=== PATIENT | male | born 1980 | race Caucasian/White ===

== ENCOUNTER → 2018-12-25 17:37 | Outpatient (CLI) | payer OTHER, SELFPAY ==
[2018-12-25 18:02] LABS: Influenza A and B by PCR Rapid Negative (Negative)
== END ==
PROVIDERS: Visit Provider Physician Assistant
DX: R68.89 Other general symptoms and signs (principal)
CPT/HCPCS: 87400

== ENCOUNTER → 2019-10-10 12:55 | Outpatient (CLI) | payer OTHER, SELFPAY ==
[2019-10-10 13:38] LABS: Add Manual Diff / Slide Review NO; Basophils Absolute Auto 100 /uL (0-100); Basophils Percent Auto 0.9 % (0-2); Eosinophils Absolute Auto 100 /uL (0-450); Eosinophils Percent Auto 1.4 % (2-4); Hematocrit 46.2 % (41-53); Hemoglobin 16.4 g/dL (13.5-17.5); Lymphocytes Absolute Auto 1700 /uL (1100-4500); Lymphocytes Percent Auto 29.1 % (25-40); Mean Corpuscular HGB Conc 35.6 % (30-36); Mean Corpuscular Hemoglobin 31.9 PG (26-34); Mean Corpuscular Volume 89.5 fL (80-100); Monocytes Absolute Auto 500 /uL (0-900); Monocytes Percent Auto 8.8 % (3-14); Neutrophils Absolute Auto 3500 /uL (1500-7000); Neutrophils Percent Auto 59.8 % (50-75); Platelet Count 241 X10^3/uL (150-400); Red Blood Cell Count 5.16 X10^6/uL (4.5-5.9); Red Cell Distribution Width 13.1 % (11.6-14.8); White Blood Cell Count 5.8 X10^3/uL (4.5-11.0)
[2019-10-10 14:05] LABS: Alanine Aminotransferase 38 IU/L (<50); Albumin 4.7 g/dL (3.5-5.0); Albumin Globulin Ratio 1.6 (1.0-2.8); Alkaline Phosphatase 39 U/L (38-126); Aspartate Aminotransferase 33 IU/L (17-59); BUN Creatinine Ratio 15.5 (6-22); Bilirubin Total 0.7 mg/dL (0.2-1.3); Blood Urea Nitrogen 17 mg/dL (9-20); Calcium 9.5 mg/dL (8.4-10.2); Carbon Dioxide 26 mmol/L (22-32); Chloride 104 mmol/L (98-107); Estimated Glomerular Filt Rate > 60.0 mL/min (>60); Globulin 2.9 g/dL (1.7-4.1); Glucose 93 mg/dL (70-100); HEMOLYSIS < 15 (0-50); Lipase 170 U/L (23-300); Sodium 139 mmol/L (137-145); Total Protein 7.6 g/dL (6.3-8.2)
== END ==
PROVIDERS: PCP Family Medicine; Visit Provider Family Medicine
DX: K58.9 Irritable bowel syndrome, unspecified (principal); K21.9 Gastro-esophageal reflux disease without esophagitis; R19.7 Diarrhea, unspecified; R53.83 Other fatigue
CPT/HCPCS: 36415; 80053; 83690; 85025; 86677; 87045; 87177; 87899

== ENCOUNTER 2019-11-13 09:03 | Day surgery (SDC) | payer OTHER, SELFPAY ==
[2019-11-13] VITALS (7 sets, daily range): BP systolic 118–131; BP diastolic 74–80; PULSE 68–82; RESP 11–16; TEMP 36–36.8; O2SAT 95–100; BMI 26.9
--- NOTE | 2019-11-13 | PATH_ITS ---
[facility] Accession Number: [id number] . 01 Material submitted: . PART A: colon - RANDOM BIOPSIES ASCENDING COLON PART B: colon - RANDOM BIOPSIES TRANSVERSE COLON PART C: colon - RANDOM BIOPSIES SIGMOID/DESCENDING COLON PART D: rectum - RANDOM RECTAL BIOPSIES . 02 Diagnosis: A-D: Random Ascending, Transverse, Sigmoid/Descending Colon, Rectum, Biopsies: Colonic mucosa with no diagnostic abnormality. Negative for active, chronic, and microscopic colitis. Negative for dysplasia and malignancy. . [facility] 11/16/2019 0952 Local . 02 Electronically signed: . Reji Freire MD, PhD, Pathologist NPI- [id number] . 01 Gross description: . Part A: RANDOM BIOPSIES ASCENDING COLON: Received in formalin are 3 fragment(s) of carpenter, soft tissue measuring 0.1 x 0.1 x 0.1 cm to 0.3 x 0.2 x 0.2 cm submitted entirely in 1 cassette(s) Part B: RANDOM BIOPSIES TRANSVERSE COLON: Received in formalin are 3 fragment(s) of carpenter, soft tissue measuring 0.1 x 0.1 x 0.1 cm to 0.3 x 0.2 x 0.2 cm submitted entirely in 1 cassette(s) Part C: RANDOM BIOPSIES SIGMOID/DESCENDING COLON: Received in formalin are 2 fragment(s) of carpenter, soft tissue measuring 0.2 x 0.2 x 0.2 cm to 0.3 x 0.2 x 0.2 cm submitted entirely in 1 cassette(s) Part D: RANDOM RECTAL BIOPSIES: Received in formalin are 2 fragment(s) of carpenter, soft tissue measuring 0.1 x 0.1 x 0.1 cm to 0.2 x 0.2 x 0.2 cm submitted entirely in 1 cassette(s) /[facility] 11/13/2019 2105 Local . 02 Pathologist provided ICD-10: R19.4 . 02 CPT . 738656, [id number], 706014, [id number] Performed at: 01 [facility] [address] [id number] MD Norberto Agrawal MD Phone: [phone] Performed at: [facility] [id number] [place], [place] [id number] MD Shannen Amezquita MD Phone: [phone]
[2019-11-13] MEDS: SODIUM CHLORIDE 0.9% 1,000 ML 200 ML IV (09:50)
--- NOTE | 2019-11-13 10:16 | PM.PREOP ---
Pre-operative Note Interval Note History & Physical reviewed/Exam performed by Physician: Yes Changes to H&P: No ASA Class (for procedural sedation): II
--- NOTE | 2019-11-13 10:42 | PM.OP.ENDO ---
Operative Date/Time/Diagnoses Date of procedure: 11/13/19 Time of procedure: 10:42 Pre-op diagnosis: Dark stool, chronic abdominal pain, high risk family history colorectal cancer Post-op diagnosis: other (Normal appearing colon) Procedure & Clinicians Study performed: Diagnostic colonoscopy, random biopsies of ascending, transverse, descending/sigmoid, and rectum Same procedure as scheduled: Yes Indications: Chronic abdominal pain, dark stool, suspected colitis, family history of colorectal cancer Surgeon: Bita Morocho Procedure Notes SCOAP/Timeout: Performed Procedure in detail: The patient was brought to the room and placed in left lateral decubitus position with all bony prominences padded. A time-out was performed and then the patient was given procedural sedation starting with [4] mg of Versed and [100] mcg of fentanyl. Vitals were monitored throughout the procedure and remained stable. Once adequately sedated the procedure was begun. A rectal exam was performed revealing [no abnormalities]. The colonoscope was then introduced to the rectum and advanced to the cecum in the usual fashion. []The cecum was identified by the appendiceal orifice, the mucosal tri-fold, and the ileocecal valve. The scope was then retracted while rotating side to side and examining each mucosal fold. [] At the conclusion of the procedure retroflexion was performed and [small grade 1-2 internal hemorrhoids without stigmata of bleeding were seen]. The scope was then withdrawn from the rectum the procedure was concluded. The patient tolerated the procedure well and was transferred to the PACU in stable condition. Findings: other findings (Normal appearing colon) Specimen(s): other (Random mucosal biopsies of the ascending, transverse, descending/sigmoid, and rectum) Complications: none Impression: Normal appearing colon Post-procedure Recommendations: Colonscopy in 5 years (Due to family history) and Other recommendation (Will depend on biopsy results.) Follow up: as needed Disposition: PACU
[2019-11-13] MEDS: MIDAZOLAM 5 MG/ML VIAL 4 MG IV (10:43)
[2019-11-13] MEDS: fentaNYL 250 MCG/5 ML INJ IV (10:44)
== END 2019-11-13 11:40 | disposition home or self-care (01) ==
PROVIDERS: PCP Family Medicine; Referring Provider Surgery; Visit Provider Surgery
PROC: 0DJD8ZZ Inspection of Lower Intestinal Tract, Via Natural or Artificial Opening Endoscopic (ICD-10-PCS; CPT 45378; principal; 2019-11-13 10:00)
DX: K64.0 First degree hemorrhoids (principal)
CPT/HCPCS: 45380; J2250; J3010

== ENCOUNTER 2019-12-09 15:15 | Outpatient (RCR) | payer OTHER, SELFPAY ==
--- NOTE | 2019-12-02 18:18 | PT.OIE ---
Current Diagnoses Chronic tension-type headache, not intractable (12/02/19) Other chronic pain (12/02/19) Cervicalgia (12/02/19) Dorsalgia, unspecified (12/02/19) Past Medical History (Last Updated 11/07/19 @ 08:47 by Alejandro Uribe DO) Asthma (Chronic ~2002) Chicken pox (Resolved) Chronic upper back pain (Acute) Diarrhea (Acute) Fatigue (Acute) GERD (gastroesophageal reflux disease) (Acute) Headache (Chronic ~2010) IBS (irritable bowel syndrome) (Acute) Low back pain (Acute) Neck pain (Acute) Segmental and somatic dysfunction of abdomen and other regions (Acute) Segmental and somatic dysfunction of cervical region (Acute) Segmental and somatic dysfunction of head region (Acute) Segmental and somatic dysfunction of lumbar region (Acute) Segmental and somatic dysfunction of pelvic region (Acute) Segmental and somatic dysfunction of rib cage (Acute) Segmental and somatic dysfunction of sacral region (Acute) Segmental and somatic dysfunction of thoracic region (Acute) Segmental and somatic dysfunction of upper extremity (Acute) Shoulder pain (Chronic ~2010) Tension headache (Acute) Past Surgical History (Last Reviewed 10/30/19 @ 15:49 by Bita Morocho MD) Anesthesia (Resolved) History of left knee surgery (Resolved ~1998) Visit Care Team Role Provider Type Alejandro Uribe DO Attending Provider Physician Primary Care Provider Referring Provider Specialty: [facility] Address: [address] [place] [address] Email: Physical Therapy Initial Evaluation PT-OP-A Visit Information Start: 12/02/19 17:42 Freq: Status: Active Protocol: Document 12/02/19 15:15 (Rec: 12/02/19 18:17 [email or web address]) Out-Patient Physical Therapy Visit Information Visit Information Visit Type Initial Evaluation Visit Start Time 15:15 Visit Stop Time 16:00 Total Visit Minutes 45 Visit Number Number of CLEARING DISTRIBUTION CLERK Visits 0 Evaluation Information Evaluation Date 12/02/19 Precautions Precautions none PT-OP-B Current Condition Start: 12/02/19 17:42 Freq: Status: Active Protocol: Document 12/02/19 15:15 HH (Rec: 12/02/19 18:17 [email or web address]) Current Condition History of Current Condition Onset Date December, Current Complaints Neck pain and bilateral shoulder pain History of Current Condition Pt is a 39yo male presented to clinic with c/o neck pain and bilateral shoulder pain. His R shoulder pain and neck started around last December with unknown cause, then his pain went away in January. His pain then started again in August and has been progressively getting worse since then. He described his achy pain primarily located at R trapezius and top of his R biceps, along with tension headache that goes around his eyeballs. Pain gets worse in the morning and prolonged sitting at work/ studying tends to worsen his headache and shoulder pain. He also noticed doing wide push up/ wide crate maker chest press do aggravate his shoulder pain as well. Pt saw Dr. Uribe on 10/09 and started to change his diet to restricted carb intake , with workout at the gym 4-5x / week along with yoga class. He stated all of these tremendously improved his symptoms but his pain is still there. He said massage trapezius, stretching and exercises tend to relieve his pain temporarily only. He is currently taking Claritin-D for head congestion and tylenol as need for neck and shoulder pain. 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 Prior Treatments and Tests no physical therapy prior to this. Treatment Goals Patient/Caregiver Goals 1. To find out his cause of symptoms 2. To relieve his pain at shoulder and neck PT-OP-C Subjective Start: 12/02/19 17:42 Freq: Status: Active Protocol: Document 12/02/19 15:15 (Rec: 12/02/19 18:17 [email or web address]) OP-PT Subjective Patient Comments Patient Comments Im dedicative to fix this Patient Questionnaires Neck Disability Index NDI Score 12 Neck Disability Index Impairment 20 to 39% Impaired (Score 10- 19) Quick Dash- Upper Extremity Quick Dash UE Score 25 Quick Dash UE Impairment 20 to 39% Impaired (Score 20- 39) PT-OP-E Functional Tests Start: 12/02/19 17:42 Freq: Status: Active Protocol: Document 12/02/19 15:15 (Rec: 12/02/19 18:17 [email or web address]) Functional Tests Apley's Scratch Test Action 2- Left top of R scap spine Action 2- Right top of L scap spine Action 3- Left inferior pole of R scap Action 3- Right lateral flank of T12 PT-OP-F Manual Assessment Start: 12/02/19 17:42 Freq: Status: Active Protocol: Document 12/02/19 15:15 HH (Rec: 12/02/19 18:17 HH [email or web address]) Manual Assessments Soft Tissue Assessment Soft Tissue Mobility Assessment mild tenderness to R teres minor significant tenderness to R trapezius Joint Mobility Assessment Joint Mobility Assessment anterior translated R humeral head at GH joint at resting position PT-OP-J Posture/Palpation/Skin Start: 12/02/19 17:42 Freq: Status: Active Protocol: Document 12/02/19 15:15 HH (Rec: 12/02/19 18:17 HH [email or web address]) Posture Evaluation Position Standing Shoulder Posture (R) Rounded PT-OP-K Range of Motion Start: 12/02/19 17:42 Freq: Status: Active Protocol: Document 12/02/19 15:15 HH (Rec: 12/02/19 18:17 HH [email or web address]) Cervical Spine Range of Motion Cervical Spine Active Degrees Testing Position Standing Flexion 55 Extension 90 Rotation Left 85 Rotation Right 87 Lateral Flexion Left 60 Lateral Flexion Right 58 ROM Limitations Pain Comments pinching pain at C4-C6 and radiating shoulder pain at bilateral traps during end range cervical extension Lumbar Spine Range of Motion Lumbar Spine Active Degrees Testing Position Supine Comments thoracic R rotation= 30 degrees thoracic L rotation= 60 degrees Shoulder Goniometric Range of Motion Shoulder Right Active External Rotation at 90 degrees 115 Abduction Internal Rotation 45 Left Active Shoulder ROM WFL Yes Testing Position Supine External Rotation at 90 degrees 85 Abduction Internal Rotation 90 Shoulder ROM Limitations Shoulder ROM Limitations Pain Comments pain noted during end range IR PT-OP-L Special Tests Start: 12/02/19 17:42 Freq: Status: Active Protocol: Document 12/02/19 15:15 HH (Rec: 12/02/19 18:17 HH [email or web address]) Special Tests Cervical Spine Special Tests Spurling's Test Test Results -ve facet joint Test Results +ve Comments radiating shoulder pain to B trap with c/s extension with rotation Foraminal Compression Test Results -ve Shoulder Special Tests Neer Impingement Test Results +Ve R Doe Ernie Impingement Test Results +Ve R PT-OP-M Strength Start: 12/02/19 17:42 Freq: Status: Active Protocol: Document 12/02/19 15:15 HH (Rec: 12/02/19 18:17 HH [email or web address]) Shoulder Strength Shoulder Manual Muscle Testing Right Flexion 4+ Good+ Extension 4+ Good+ Abduction (C5) 4+ Good+ Adduction 4+ Good+ External Rotation 4+ Good+ Internal Rotation 4 Good Reason Not Measured Pain Comments pain noted during end range IR Left Flexion 4+ Good+ Extension 5 Normal Abduction (C5) 4+ Good+ Adduction 5 Normal External Rotation 5 Normal Internal Rotation 5 Normal PT-OP-Q Treatments Start: 12/02/19 17:42 Freq: Status: Active Protocol: Document 12/02/19 15:15 (Rec: 12/02/19 18:17 [email or web address]) Therapeutic Exercises Supine Exercises chin tuck Side bilateral Comments against pillow tennis ball release Supine Exercise Name at suboccipital Side bilateral Comments for HEP Sidelying Exercises open book Sidelying Exercise Name with hip block Side bilateral Reps/Minutes 2 mins Comments for HEP PT-OP-T Assessment and Plan Start: 12/02/19 17:42 Freq: Status: Active Protocol: Document 12/02/19 15:15 (Rec: 12/02/19 18:17 [email or web address]) Physical Therapy Assessment Rehab Potential Rehabilitation Potential Excellent Evaluation Complexity Number of Personal Factors/Comorbidities 1-2 Number of Body Systems Impaired 1-2 Clinical Presentation at Evaluation Stable Impairments Impairments Functional Activities, Functional Mobility,Pain, Posture,ROM,Soft Tissue Mobility,Strength Goals strength Impairment pain noted during wide push up / bench press [facility] Goal (LTG) Pt will perform a safe and proper body man for push ups and 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 LTG Duration 6 weeks neurological symptoms Impairment radiating shoulder pain during c/s ext + rotation [facility] Goal (LTG) Pt will not have radiating shooting to his B shoulders during facet joint test/ end range cervical extension LTG Duration 6 weeks Shoulder IR Impairment limited IR =45 degrees Short Term Goal (STG) Pt will improve his R shoulder IR to >60 degrees with minimal discomfort to improve his mobility for reaching behind his back for donning jacket. STG Duration 3 weeks Double End Tenoner Setter Goal (LTG) Pt will improve his R shoulder IR to >80 degrees with minimal discomfort to improve his mobility for reaching behind his back for donning jacket. LTG Duration 6 weeks NDI and quick dash Impairment Pt scores both questionnaire at 20-39% impairments Double End Tenoner Setter Goal (LTG) pt will reach 1-19% impairment for both NDI and Quick Dash questionnaire to improve his quality of life. LTG Duration 6 weeks Assessment Summary Assessment This is a low complexity evaluation for this 39 yo male presented to clinic with neck and B shoulder pain. 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 He also demonstrates very limited R thoracic rotation which cause him difficulty to reach behind his back with R arm. Pt also has cervical radiculopathy who experiences radiating shoulder pain to trapezius with cervical extension/ extension + rotation. Pt also stated he has sedentary job/ studying life so he is not surprised that he stays in [facility] often. Provided him HEP with open book, chin tuck and tennis ball release on suboccipital today. Pt will benefit from skilled physical therapy to address aforementioned impairments in order to improve his functional shoulder mobility and strength for daily activities and weight lifting activities in pain free. Physical Therapy Plan Frequency and Duration Frequency of Treatment 1x/Week Duration of Treatment 6 weeks Plan of Care Start Date 12/02/19 Plan of Care End Date 01/16/20 Therapeutic Interventions Therapeutic Interventions Home Exercise Program,Joint Mobilizations,Manual Therapy, Neuromuscular Re-education, Patient/Caregiver Education, Self-Care/Home Management,Soft Tissue Mobilization,Taping, Therapeutic Activities, Therapeutic Exercises Modalities Cold Pack/Ice Massage,Electric Stimulation,Hot Packs, Infrared Therapy,Ultrasound Next Visit Focus/Plan Next Note Type Treatment Note Next Visit Plan start with manual therapy on teres minor suboccipital, levator scap, post glide of GH R thoracic rotation, R shoulder IR
--- NOTE | 2019-12-02 18:18 | PT.OPPOC ---
Physical, Occupational & Speech Therapy At [facility] Current Diagnoses Chronic tension-type headache, not intractable (12/02/19) Other chronic pain (12/02/19) Cervicalgia (12/02/19) Dorsalgia, unspecified (12/02/19) Visit Care Team Role Provider Type Alejandro Uribe DO Attending Provider Physician Primary Care Provider Referring Provider Specialty: [facility] Address: [address] [place] [address], [facility] Email: Plan Of Care PT-OP-T Assessment and Plan Start: 12/02/19 17:42 Freq: Status: Active Protocol: Document 12/02/19 15:15 (Rec: 12/02/19 18:17 [email or web address]) Physical Therapy Assessment Rehab Potential Rehabilitation Potential Excellent Evaluation Complexity Number of Personal Factors/Comorbidities 1-2 Number of Body Systems Impaired 1-2 Clinical Presentation at Evaluation Stable Impairments Impairments Functional Activities, Functional Mobility,Pain, Posture,ROM,Soft Tissue Mobility,Strength Goals strength Impairment pain noted during wide push up / bench press Care Home Goal (LTG) Pt will perform a safe and proper body technician for push ups and 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 LTG Duration 6 weeks neurological symptoms Impairment radiating shoulder pain during c/s ext + rotation [employer] Goal (LTG) Pt will not have radiating shooting to his B shoulders during facet joint test/ end range cervical extension LTG Duration 6 weeks Shoulder IR Impairment limited IR =45 degrees Short Term Goal (STG) Pt will improve his R shoulder IR to >60 degrees with minimal discomfort to improve his mobility for reaching behind his back for donning jacket. STG Duration 3 weeks [employer] Goal (LTG) Pt will improve his R shoulder IR to >80 degrees with minimal discomfort to improve his mobility for reaching behind his back for donning jacket. LTG Duration 6 weeks NDI and quick dash Impairment Pt scores both questionnaire at 20-39% impairments [employer] Goal (LTG) pt will reach 1-19% impairment for both NDI and Quick Dash questionnaire to improve his quality of life. LTG Duration 6 weeks Assessment Summary Assessment This is a low complexity evaluation for this 39 yo male presented to clinic with neck and B shoulder pain. 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 He also demonstrates very limited R thoracic rotation which cause him difficulty to reach behind his back with R arm. Pt also has cervical radiculopathy who experiences radiating shoulder pain to trapezius with cervical extension/ extension + rotation. Pt also stated he has sedentary job/ studying life so he is not surprised that he stays in [facility] often. Provided him HEP with open book, chin tuck and tennis ball release on suboccipital today. Pt will benefit from skilled physical therapy to address aforementioned impairments in order to improve his functional shoulder mobility and strength for daily activities and weight lifting activities in pain free. Physical Therapy Plan Frequency and Duration Frequency of Treatment 1x/Week Duration of Treatment 6 weeks Plan of Care Start Date 12/02/19 Plan of Care End Date 01/16/20 Therapeutic Interventions Therapeutic Interventions Home Exercise Program,Joint Mobilizations,Manual Therapy, Neuromuscular Re-education, Patient/Caregiver Education, Self-Care/Home Management,Soft Tissue Mobilization,Taping, Therapeutic Activities, Therapeutic Exercises Modalities Cold Pack/Ice Massage,Electric Stimulation,Hot Packs, Infrared Therapy,Ultrasound Next Visit Focus/Plan Next Note Type Treatment Note Next Visit Plan start with manual therapy on teres minor suboccipital, levator scap, post glide of GH R thoracic rotation, R shoulder IR Plan of Care Dates Plan of Care Start Date 12/02/19 Plan of Care End Date 01/16/20 Electronically Signed by: Silverio Garcia PT 12/02/19 1717 Please Sign and Return: I have reviewed this Plan of Care and certify that the skilled therapy services above are required to meet the patient?s needs. Physician Signature Date Printed Name and Credentials Clinical Instructor Signature Printed Name and Credentials
--- NOTE | 2019-12-04 16:17 | PT.OTN ---
Current Diagnoses Chronic tension-type headache, not intractable (12/04/19) Other chronic pain (12/04/19) Cervicalgia (12/04/19) Dorsalgia, unspecified (12/04/19) Physical Therapy Treatment Note PT-OP-A Visit Information Start: 12/02/19 17:42 Freq: Status: Active Protocol: Document 12/04/19 16:10 HH (Rec: 12/04/19 16:17 HH [email or web address]) Out-Patient Physical Therapy Visit Information Visit Information Visit Type Treatment Note Visit Start Time 15:15 Visit Stop Time 16:59 Total Visit Minutes 44 Visit Number PT-OP-B Current Condition Start: 12/02/19 17:42 Freq: Status: Active Protocol: Document 12/02/19 15:15 HH (Rec: 12/02/19 18:17 [email or web address]) Current Condition History of Current Condition Onset Date December, Current Complaints Neck pain and bilateral shoulder pain History of Current Condition Pt is a 39yo male presented to clinic with c/o neck pain and bilateral shoulder pain. His R shoulder pain and neck started around last December with unknown cause, then his pain went away in January. His pain then started again in August and has been progressively getting worse since then. He described his achy pain primarily located at R trapezius and top of his R biceps, along with tension headache that goes around his eyeballs. Pain gets worse in the morning and prolonged sitting at work/ studying tends to worsen his headache and shoulder pain. He also noticed doing wide push up/ wide sped teacher chest press do aggravate his shoulder pain as well. Pt saw Dr. Uribe on 10/09 and started to change his diet to restricted carb intake , with workout at the gym 4-5x / week along with yoga class. He stated all of these tremendously improved his symptoms but his pain is still there. He said massage trapezius, stretching and exercises tend to relieve his pain temporarily only. He is currently taking Claritin-D for head congestion and tylenol as need for neck and shoulder pain. 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 Prior Treatments and Tests no physical therapy prior to this. Treatment Goals Patient/Caregiver Goals 1. To find out his cause of symptoms 2. To relieve his pain at shoulder and neck PT-OP-C Subjective Start: 12/02/19 17:42 Freq: Status: Active Protocol: Document 12/04/19 16:10 HH (Rec: 12/04/19 16:17 HH [email or web address]) OP-PT Subjective Patient Comments Patient Comments Sparkle been doing my ex. The chin tuck ex tends to trigger my trap pain Patient Reported Progress Same PT-OP-E Functional Tests Start: 12/02/19 17:42 Freq: Status: Active Protocol: Document 12/02/19 15:15 HH (Rec: 12/02/19 18:17 HH [email or web address]) Functional Tests Apley's Scratch Test Action 2- Left top of R scap spine Action 2- Right top of L scap spine Action 3- Left inferior pole of R scap Action 3- Right lateral flank of T12 PT-OP-F Manual Assessment Start: 12/02/19 17:42 Freq: Status: Active Protocol: Document 12/02/19 15:15 HH (Rec: 12/02/19 18:17 HH [email or web address]) Manual Assessments Soft Tissue Assessment Soft Tissue Mobility Assessment mild tenderness to R teres minor significant tenderness to R trapezius Joint Mobility Assessment Joint Mobility Assessment anterior translated R humeral head at GH joint at resting position PT-OP-J Posture/Palpation/Skin Start: 12/02/19 17:42 Freq: Status: Active Protocol: Document 12/02/19 15:15 HH (Rec: 12/02/19 18:17 HH [email or web address]) Posture Evaluation Position Standing Shoulder Posture (R) Rounded PT-OP-K Range of Motion Start: 12/02/19 17:42 Freq: Status: Active Protocol: Document 12/02/19 15:15 HH (Rec: 12/02/19 18:17 HH [email or web address]) Cervical Spine Range of Motion Cervical Spine Active Degrees Testing Position Standing Flexion 55 Extension 90 Rotation Left 85 Rotation Right 87 Lateral Flexion Left 60 Lateral Flexion Right 58 ROM Limitations Pain Comments pinching pain at C4-C6 and radiating shoulder pain at bilateral traps during end range cervical extension Lumbar Spine Range of Motion Lumbar Spine Active Degrees Testing Position Supine Comments thoracic R rotation= 30 degrees thoracic L rotation= 60 degrees Shoulder Goniometric Range of Motion Shoulder Right Active External Rotation at 90 degrees 115 Abduction Internal Rotation 45 Left Active Shoulder ROM WFL Yes Testing Position Supine External Rotation at 90 degrees 85 Abduction Internal Rotation 90 Shoulder ROM Limitations Shoulder ROM Limitations Pain Comments pain noted during end range IR PT-OP-L Special Tests Start: 12/02/19 17:42 Freq: Status: Active Protocol: Document 12/02/19 15:15 HH (Rec: 12/02/19 18:17 HH [email or web address]) Special Tests Cervical Spine Special Tests Spurling's Test Test Results -ve facet joint Test Results +ve Comments radiating shoulder pain to B trap with c/s extension with rotation Foraminal Compression Test Results -ve Shoulder Special Tests Neer Impingement Test Results +Ve R Doe Ernie Impingement Test Results +Ve R PT-OP-M Strength Start: 12/02/19 17:42 Freq: Status: Active Protocol: Document 12/02/19 15:15 HH (Rec: 12/02/19 18:17 HH [email or web address]) Shoulder Strength Shoulder Manual Muscle Testing Right Flexion 4+ Good+ Extension 4+ Good+ Abduction (C5) 4+ Good+ Adduction 4+ Good+ External Rotation 4+ Good+ Internal Rotation 4 Good Reason Not Measured Pain Comments pain noted during end range IR Left Flexion 4+ Good+ Extension 5 Normal Abduction (C5) 4+ Good+ Adduction 5 Normal External Rotation 5 Normal Internal Rotation 5 Normal PT-OP-Q Treatments Start: 12/02/19 17:42 Freq: Status: Active Protocol: Document 12/04/19 16:10 HH (Rec: 12/04/19 16:17 [email or web address]) Therapeutic Exercises Supine Exercises chin tuck Side bilateral Comments against pillow Sidelying Exercises open book Sidelying Exercise Name with hip block Side bilateral Reps/Minutes 2 mins Comments for HEP Standing Exercises median nerve glide Standing Exercise Name with c/s rotation Side bilateral Equipment Used against wall Reps/Minutes 3 mins Manual Therapy Treatment Soft Tissue Mobilization levator scap Mobilization Type Sustained Pressure,Trigger Point Release Intensity/Depth Moderate Body Position Supine suboccipitals Mobilization Type Sustained Pressure,Trigger Point Release Intensity/Depth Moderate Body Position Supine RTC Body Location infraspinatus, subscapularis Mobilization Type Sustained Pressure,Trigger Point Release Intensity/Depth Moderate Body Position Sidelying Comments noted shooting pain to top of R shoulder Joint Mobilizations OA mob Direction AP glide Grade II Body Position Supine Reps/Duration 4 mins Comments with rotation GH Joint R GH joint Direction posterior followed by inferior glide Grade III Body Position Supine Reps/Duration 8 mins Comments with passive ER and IR Manual Traction c/s distraction Body Position Supine Reps/Duration 10 secsx 6 Nerve Glides ulnar Nerve w/ c/s rotation Body Position Supine Reps/Duration 2 mins median Nerve w/ c/s rotation Details bilateral Body Position Supine Reps/Duration 2 mins PT-OP-T Assessment and Plan Start: 12/02/19 17:42 Freq: Status: Active Protocol: Document 12/04/19 16:10 HH (Rec: 12/04/19 16:17 HH [email or web address]) Physical Therapy Assessment Goals strength Impairment pain noted during wide push up / bench press Retirement Goal (LTG) 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 STG Duration 3 weeks Retirement Goal (LTG) Pt will improve his R shoulder IR to >80 degrees with minimal discomfort to improve his mobility for reaching behind his back for donning jacket. LTG Duration 6 weeks NDI and quick dash Impairment Pt scores both questionnaire at 20-39% impairments Retirement Goal (LTG) pt will reach 1-19% impairment for both NDI and Quick Dash questionnaire to improve his quality of life. LTG Duration 6 weeks Assessment Summary Assessment pt shows positive for UTTT on median nerve bilateraly L worse than R. Tx focused on manual therapy today. Pt's A/ PROM of IR improved to approx 80 degrees after with minimal pain but cont to have pain while reaching behind his back . Added median nerve glide for HEP. Physical Therapy Plan Next Visit Focus/Plan Next Note Type Treatment Note Next Visit Plan start with manual therapy on teres minor suboccipital, levator scap, post glide of GH add T/S extension mob R thoracic rotation, R shoulder IR
--- NOTE | 2020-06-14 11:24 | PT.OPDS ---
Current Diagnoses Chronic tension-type headache, not intractable (12/09/19) Other chronic pain (12/09/19) Cervicalgia (12/09/19) Dorsalgia, unspecified (12/09/19) Visit Care Team Role Provider Type Alejandro Uribe DO Attending Provider Physician Primary Care Provider Referring Provider Specialty: Family Practice Address: [address] [place] [address] Email: Visit Number Visit Number Discharge Summary PT-OP-T Assessment and Plan Start: 12/02/19 17:42 Freq: Status: Active Protocol: Document 06/14/20 11:23 (Rec: 06/14/20 11:24 [email or web address]) Physical Therapy Plan Discharge Physical Therapy Discharge Reasons No Longer Attending PT Discharge Comments Patient did not return call after clinic re-opening, 30+ days. DC from PT today
== END 2020-07-12 10:46 ==
LOC: PHYS 15:15
PROVIDERS: PCP Family Medicine; Referring Provider Family Medicine; Visit Provider Family Medicine
DX: M54.2 Cervicalgia (principal); G89.29 Other chronic pain; M54.9 Dorsalgia, unspecified; G44.229 Chronic tension-type headache, not intractable
CPT/HCPCS: 97110; 97140; 97161

== ENCOUNTER → 2020-08-30 14:59 | Outpatient (CLI) | payer OTHER, SELFPAY ==
[2020-08-30 15:40] LABS: Add Manual Diff / Slide Review NO; Basophils Absolute Auto 0 /uL (0-100); Basophils Percent Auto 0.8 % (0-2); Eosinophils Absolute Auto 100 /uL (0-450); Eosinophils Percent Auto 1.4 % (2-4); Hemoglobin 16.1 g/dL (13.5-17.5); Lymphocytes Absolute Auto 1300 /uL (1100-4500); Lymphocytes Percent Auto 23.1 % (25-40); Mean Corpuscular HGB Conc 34.9 % (30-36); Mean Corpuscular Hemoglobin 32.3 PG (26-34); Mean Corpuscular Volume 92.5 fL (80-100); Monocytes Absolute Auto 500 /uL (0-900); Monocytes Percent Auto 9.3 % (3-14); Neutrophils Absolute Auto 3800 /uL (1500-7000); Neutrophils Percent Auto 65.4 % (50-75); Platelet Count 231 X10^3/uL (150-400); Red Blood Cell Count 4.98 X10^6/uL (4.5-5.9); White Blood Cell Count 5.7 X10^3/uL (4.5-11.0)
[2020-08-30 16:06] LABS: Erythrocyte Sedimentation Rate 1 MM/HR (0-15)
[2020-08-30 16:17] LABS: C-Reactive Protein Quant < 0.5 mg/dL (<1.0)
[2020-08-30 16:38] LABS: TSH w/ Reflex to FT4 2.43 uIU/mL (0.47-4.68)
== END ==
PROVIDERS: PCP Family Medicine; Referring Provider Family Medicine; Visit Provider Family Medicine
DX: R53.82 Chronic fatigue, unspecified (principal)
CPT/HCPCS: 36415; 84443; 85025; 85651; 86140

== ENCOUNTER → 2020-09-08 11:59 | Outpatient (CLI) | payer OTHER, SELFPAY ==
--- NOTE | 2020-09-08 17:17 | DIET.PN ---
Dietary Progress Note Assessment: 40y M referred to nutrition from PCP for help with identifying possible food triggers to chronic sinusitis, fatigue, and GI upset/IBS. 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 Pt stopped eating dairy and took probiotic, started feeling better until July 2019 when he went to [place] for a week and ate poorly, came home and started feeling not myself for 2mo. Saw Dr. Uribe to start anti-inflammatory diet. Did elimination TQI protocol but doesn't feel he properly reintroduced foods. Pt would like help redoing the elimination diet with help from RD on the reintroduction phase along with some meal planning help. Past two weeks have been worse than usual, feeling 5/100, waking 3am hot, difficult to fall back asleep. Wonders if he has environmental allergies that are also at play. Wonders about yeast or leonor overgrowth. Eliminated: no dairy, peanut butter, or other nut butters, gluten, etoh, most coffee HT: 6'2 WT: 180# UBW: was 240# prior to December 2018 BMI: 25 Labs: unremarkable Usual Day: Sn: banana B: green tea, 4 eggs c ground beef and mild salsa or sweet potato c quinoa, mariela seeds, pumpkin seeds, hemp seeds, blueberries, honey Sn: banana or pistachios, aranza bar gets a variety L: chicken, white rice, veggies, recently chicken and veggies (ground beef, avocado, salsa, baby carrots) Sn: banana, pistachios, orange, almonds D: similar to lunch (chicken breasts, fresh), waffles c almond and cashew milk, spinach, blueberries, eggs, hemp seeds, almond flour c vegan butter (earth balance), organic maple syrup Supplements: Vitamin B complex, Vit D3 10,000 IU for past year, elderberry/vit c/zic, 24h allergy pill in am, no longer taking digestive enzymes, fish oil, magnesium Interventions: 1. Discussed food intolerance symptoms and elimination diet protocol with focus on strict reintroduction schedule with goal of attaining most liberal diet possible without triggering sx. 2. Pt would like referral from PCP to [facility]icker worker for environmental/food allergy testing. Monitoring/Evaluations: f/u in 1w to review elimination diet plan c meal planning guides.
== END ==
PROVIDERS: PCP Family Medicine; Referring Provider Family Medicine; Visit Provider Family Medicine
DX: J32.9 Chronic sinusitis, unspecified (principal); R53.83 Other fatigue; K58.9 Irritable bowel syndrome, unspecified; Z71.3 Dietary counseling and surveillance
CPT/HCPCS: 97802

== ENCOUNTER → 2020-09-09 15:36 | Outpatient (CLI) | payer OTHER, SELFPAY ==
--- NOTE | 2020-09-09 15:37 | DI.CT.S_ITS ---
PROCEDURE: CT SINUS SCREEN WO CON INDICATIONS: chronic sinusitis TECHNIQUE: Noncontrast 3.0 mm axial images acquired from the frontal sinuses to the mid-sella, with coronal and sagittal reformats. For radiation dose reduction, the following was used: automated exposure control, adjustment of mA and/or kV according to patient size. COMPARISON: None. FINDINGS: Image quality: Excellent. Maxillary Sinuses: No bony remodeling or destruction. Sinuses are clear. Ethmoid Air Cells: No bony remodeling or destruction. Sinuses are clear. Sphenoid Sinuses: No bony remodeling or destruction. Sinuses are clear. Frontal Sinuses: No bony remodeling or destruction. Sinuses are clear. Ostiomeatal Complexes: Ostiomeatal complexes are patent. No Shelli cells. Miscellaneous: Visualized intra-orbital contents are normal. Nasal septum is mildly deviated to the right. No kendra bullosa or paradoxical turbinate curvature. No nasal septal deviation. IMPRESSION: 1. No paranasal sinus mucosal thickening. 2. No paranasal sinus air-fluid levels. Dictated by: Babs Palma MD, PhD on 09/09/2020 at 17:20 Approved by: Babs Palma MD, PhD on 09/09/2020 at 17:22
== END ==
PROVIDERS: PCP Family Medicine; Referring Provider Family Medicine; Visit Provider Family Medicine
DX: J32.9 Chronic sinusitis, unspecified (principal); J34.2 Deviated nasal septum
CPT/HCPCS: 70486

== ENCOUNTER → 2020-09-13 12:57 | Outpatient (CLI) | payer OTHER, SELFPAY ==
--- NOTE | 2020-09-13 14:05 | DIET.PN ---
Dietary Progress Note RD f/u c pt referred for help with elimination diet to rule out food allergies/intolerances for sx of IBS, nasal congestion, brain fog, irritability, and fatigue. Pt will follow anti-inflammatory diet for four weeks c avoidance of: Dairy (cow/goat/sheep/fermented), Eggs (whole/in baked goods), Peanuts, Tree nuts (almonds/brazil/cashew/hazelnut/macadamia/pecan/pinenut/pistachio/walnut), Soy (food additive/edamame/tofu-soymilk/tempeh), Wheat, alcohol, and coffee. He will then systematically add these foods back in one at a time, spacing food introductions 5 days apart while writing in food/sx log to identify which, if any, foods are offensive with the goal to end with as liberal of a diet as possible while continuing to follow a healthy, anti-inflammatory general diet. RD worked c pt on supporting nutrient needs during elimination phase ensuring adequate nutrient intake. Pt requests specific menu for the four week elimination phase and expresses understanding in the reintroduction protocol. RD will provide 4 each breakfasts/lunches/dinners/snacks meal plan via secure email to pt. F/u in 4 weeks to start reintroduction phase.
== END ==
PROVIDERS: PCP Family Medicine; Referring Provider Family Medicine; Visit Provider Family Medicine
DX: K58.9 Irritable bowel syndrome, unspecified (principal); R09.81 Nasal congestion; R45.4 Irritability and anger; R53.83 Other fatigue; Z71.3 Dietary counseling and surveillance
CPT/HCPCS: 97803

== ENCOUNTER → 2020-09-27 16:04 | Outpatient (CLI) | payer OTHER, SELFPAY ==
[2020-09-27 17:09] LABS: COVID19 -Nasal RAPID Negative (Negative)
== END ==
PROVIDERS: PCP Family Medicine; Visit Provider Physician Assistant
DX: Z20.822 Contact with and (suspected) exposure to COVID-19 (principal)
CPT/HCPCS: 87635

== ENCOUNTER → 2020-10-24 15:51 | Outpatient (CLI) | payer OTHER, SELFPAY ==
--- NOTE | 2020-10-24 15:52 | DI.RAD.S_ITS ---
PROCEDURE: XR CHEST 2V INDICATIONS: chest pain TECHNIQUE: 2 views of the chest were acquired. COMPARISON: None. FINDINGS: Surgical changes and devices: None. Lungs and pleura: Lungs are clear. No pleural effusions or pneumothorax. Mediastinum: Mediastinal contours are normal. Heart size is normal. Bones and chest wall: No suspicious bony abnormalities. Soft tissues appear unremarkable. IMPRESSION: Normal for age, source of chest pain is not seen. Dictated by: Vasu Pelletier M.D. on 10/24/2020 at 16:35 Approved by: Vasu Pelletier M.D. on 10/24/2020 at 16:36
== END ==
PROVIDERS: PCP Family Medicine; Referring Provider Family Medicine; Visit Provider Family Medicine
DX: R07.9 Chest pain, unspecified (principal)
CPT/HCPCS: 71046

== ENCOUNTER → 2020-11-16 14:56 | Outpatient (CLI) | payer OTHER, SELFPAY ==
[2020-11-16 15:31] LABS: COVID19 -Nasal RAPID Negative (Negative)
== END ==
PROVIDERS: PCP Family Medicine; Referring Provider Internal Medicine; Visit Provider Internal Medicine
DX: Z20.822 Contact with and (suspected) exposure to COVID-19 (principal)
CPT/HCPCS: 87635; C9803

== ENCOUNTER → 2020-11-17 15:02 | Outpatient (CLI) | payer OTHER, SELFPAY ==
--- NOTE | 2020-11-23 09:56 | PM.PFT.1 ---
Pulmonary Function Test Referral & Results Date Patient Seen: 11/17/20 Requesting provider: Nancie Cheney Indication: Asthma Results: The spirometry demonstrates an FVC of 5.85 L which is 97% of predicted. The FEV1 was measured at 4.85 L which is 101% of predicted. The FEV1/FVC ratio was 83 which is 103% of predicted. Following the administration of bronchodilator there was a 32% improvement in FEF 25-75%. Lung volumes show an SVC of 5.75 L which is 100% of predicted. The diffusing capacity was measured at 45.44 which is 120% of predicted. The maximum voluntary ventilation was normal Interpretation: This study demonstrates probably normal spirometry although there is a 32% improvement in small airway flow after bronchodilator as demonstrated by the improvement in FEF 25-75% as above. Patient also with a supranormal diffusing capacity. This is consistent with a diagnosis of asthma. However shape of flow volume loop has no curve to it to suggest underlying obstructive lung disease This study overall demonstrates very minimal findings to support the diagnosis of asthma, but could also be considered normal. Clinical correlation suggested
== END ==
PROVIDERS: PCP Family Medicine; Referring Provider Family Medicine; Visit Provider Family Medicine
DX: J45.909 Unspecified asthma, uncomplicated (principal)
CPT/HCPCS: 94060; 94726; 94729

== ENCOUNTER → 2023-04-25 12:47 | Outpatient (CLI) | payer OTHER, SELFPAY ==
--- NOTE | 2023-04-25 12:47 | DI.US.S_ITS ---
PROCEDURE: US SCROTUM INDICATIONS: LEFT TESTICULAR PAIN TECHNIQUE: Real-time scanning was performed of the scrotum and testicles, with image documentation. Color and pulse Doppler interrogation was performed of both testicles. COMPARISON: None. FINDINGS: Right: Testicle is normal in size at 4.6 x 2.6 x 3.7 cm, and homogenous in echotexture. Epididymis is normal in overall size and morphology. There is a 0.9 x 0.6 x 1.2 cm epididymal. Trace hydrocele. No varicoceles. Overlying scrotal skin is normal in thickness. Left: Testicle is normal in size at 4.1 x 2.4 x 3.4 cm, and homogeneous in echotexture. Epididymis is normal in overall size and morphology. No hydrocele or varicoceles. Overlying scrotal skin is normal in thickness. Doppler: Color and pulse Doppler demonstrate normal and symmetric arterial flow in both testicles. IMPRESSION: 1. A cause for left testicular pain is not identified. 2. Normal testicles bilaterally. No findings to suggest testicular torsion. No testicular mass. 3. No findings to suggest epididymitis. 4. A 0.9 x 0.6 x 1.2 cm right epididymal cyst. 5. Trace right hydrocele. Dictated by: Darrell Seth M.D. on 04/25/2023 at 21:19 Approved by: Darrell Seth M.D. on 04/25/2023 at 21:23
== END ==
PROVIDERS: PCP Family Medicine; Referring Provider Physician Assistant; Visit Provider Physician Assistant
DX: A63.0 Anogenital (venereal) warts (principal); N50.812 Left testicular pain; N52.9 Male erectile dysfunction, unspecified; N50.3 Cyst of epididymis
CPT/HCPCS: 76870

== ENCOUNTER → 2023-05-01 07:58 | Outpatient (CLI) | payer OTHER, SELFPAY ==
[2023-05-01 09:55] LABS: Alanine Aminotransferase 48 IU/L (<50); Albumin 4.2 g/dL (3.5-5.0); Albumin Globulin Ratio 1.7 (1.0-2.8); Alkaline Phosphatase 39 U/L (38-126); Aspartate Aminotransferase 38 IU/L (17-59); BUN Creatinine Ratio 13.8 (6-22); Bilirubin Total 0.8 mg/dL (0.2-1.3); Blood Urea Nitrogen 13 mg/dL (9-20); Calcium 8.9 mg/dL (8.4-10.2); Carbon Dioxide 29 mmol/L (22-32); Chloride 104 mmol/L (98-107); Cholesterol 176 mg/dL (140-199); Estimated Glomerular Filt Rate > 60 mL/min (>60); Globulin 2.5 g/dL (1.7-4.1); Glucose 84 mg/dL (70-100); HDL Cholesterol 36 mg/dL (40-60); HEMOLYSIS < 15 (0-50); LDL Cholesterol Calculated 113 mg/dL (<100); Sodium 139 mmol/L (137-145); Total Protein 6.7 g/dL (6.3-8.2); Triglycerides 136 mg/dL (35-150)
[2023-05-01 10:28] LABS: TSH w/ Reflex to FT4 2.76 uIU/mL (0.47-4.68)
[2023-05-02 16:14] LABS: HIV 1 & 2 Ab/Ag 4th Gen Combo NEGATIVE (NEGATIVE); Hep C Virus Ab w/Reflex Quant NEGATIVE s/c (NEGATIVE)
== END ==
PROVIDERS: PCP Family Medicine; Referring Provider Physician Assistant; Visit Provider Physician Assistant
DX: E78.5 Hyperlipidemia, unspecified (principal); Z11.3 Encounter for screening for infections with a predominantly sexual mode of transmission; A63.0 Anogenital (venereal) warts; N50.812 Left testicular pain; N52.9 Male erectile dysfunction, unspecified; R53.83 Other fatigue; Z13.6 Encounter for screening for cardiovascular disorders; Z13.220 Encounter for screening for lipoid disorders
CPT/HCPCS: 36415; 80053; 80061; 84443; 86803; 87389